=== PATIENT | male | born 1995 | race Caucasian/White ===

== ENCOUNTER 2022-02-24 16:09 | Emergency (ER) | payer BC ==
[2022-02-24] MEDS: Ondansetron 4 MG/2 ML SDV IVPUSH ONE (18:42)
[2022-02-24] MEDS: Ketorolac 30 MG/ML SDV IVPUSH ONE (18:42)
[2022-02-24] MEDS: Sodium Chloride 0.9% 1,000 ML IV SCH (18:43)
[2022-02-24] MEDS: HYDROmorphone 1 MG/ML Syringe IVPUSH ONE (18:43)
[2022-02-24 19:04] LABS: BLOOD UREA NITROGEN,BUN 14 mg/dL (7.0-18.0); CARBON DIOXIDE,CO2 25.1 mmol/L (21.0-32.0); CHLORIDE,CL 102 mmol/L (98-107); GLUCOSE RANDOM 86 mg/dL (74-106); POTASSIUM,K 3.9 mmol/L (3.5-5.1); SODIUM,NA 139 mmol/L (136-148)
[2022-02-24 19:07] LABS: ESTIMATED GFR 96 mL/min (>60)
== END 2022-02-24 22:33 | disposition home or self-care (01) ==
LOC: MW.ED 16:09
DX: R10.9 Unspecified abdominal pain (principal); Z79.899 Other long term (current) drug therapy
CPT/HCPCS: 36415; 74176; 80053; 81001; 83690; 85025; 85379; 87086; 96361; 96374; 96375; 99284; J1170; J1885; J2405; J7030

== ENCOUNTER 2022-10-12 21:15 | Emergency (ER) | payer BC ==
[2022-10-12] MEDS ORDERED: Sodium Chloride 0.9% 1,000 ML IV ONE (21:23)
[2022-10-12] MEDS ORDERED: Acetaminophen/Codeine 120-12 MG/5 ML Soln 5 ML UD Cup PO ONE (21:24)
[2022-10-12] MEDS ORDERED: Ibuprofen 800 MG Tab PO ONE (21:27)
[2022-10-12] MEDS ORDERED: Penicillin G Benzathine 1,200,000 Units/2 ML Syringe IM ONE (21:28)
== END 2022-10-12 23:02 | disposition home or self-care (01) ==
LOC: MW.ED 21:15
DX: J02.0 Streptococcal pharyngitis (principal)
CPT/HCPCS: 96372; 99283; A9270; J0561

== ENCOUNTER 2023-05-16 10:39 | Day surgery (SDC) | payer BC ==
[~2023-05-16 10:39] MED LIST: Lactated Ringers 1,000 ML IV SCH
[2023-05-16] MEDS ORDERED: Propofol 200 MG/20 ML SDV ONE ×2 (11:28→11:54)
[2023-05-16] MEDS ORDERED: Lidocaine 2% 5 ML SDV ONE (11:28)
[2023-05-16] MEDS ORDERED: Ondansetron 4 MG/2 ML SDV ONE (11:30)
== END 2023-05-16 12:49 | disposition home or self-care (01) ==
LOC: MW.SDS 10:39
PROVIDERS: ATTEND Surgery
DX: K29.50 Unspecified chronic gastritis without bleeding (principal); K21.00 Gastro-esophageal reflux disease with esophagitis, without bleeding; F41.9 Anxiety disorder, unspecified; F32.A Depression, unspecified; G47.30 Sleep apnea, unspecified; Z79.899 Other long term (current) drug therapy
CPT/HCPCS: 43239; J2405; J2704; J7120; 00731; J3490